=== PATIENT | male | born 1960 | race Caucasian/White ===

== ENCOUNTER → 2017-04-07 | Outpatient (CLI) | payer BC ==
[2016-11-20 14:38] VITALS: BP 122/80
[~2017-04-07] MED LIST: NS 100 ML IV 100 ML IV ONE
[2017-04-07 09:09] LABS: CREATININE 1.16 mg/dL (0.70-1.30)
--- NOTE | 2017-04-07 11:12 | CT ---
HISTORY: Left lower quadrant pain. History of diverticulosis. Study: CT abdomen and pelvis with contrast Comparison: CT abdomen/pelvis dated November 17, 2016. Technique: Multiple axial images of the abdomen and pelvis were obtained from the lung bases to the pubic symph ysis after/ without/ both prior to and after the administration of IV contrast. Dose reduction tech niques including Automated Exposure Control (AEC) and adjustment of mA and kV were utilized. Findings: The visualized portions of the lung bases are unremarkable. The gallbladder is surgically absent. Di ffuse fatty infiltration of the liver. 4 mm right inferior renal pole nonobstructing nephrolith appe ars unchanged. The spleen, pancreas, left kidney, and adrenal glands are unremarkable in their CT ap pearance. Extensive diverticulosis of the large bowel with focal bowel wall thickening and associate d mesenteric stranding within the left lower quadrant. No obvious free air to suggest perforation or focal fluid collection to suggest abscess formation. Remaining large and small bowel appear normal. The appendix is normal. No pathologic lymphadenopathy or free fluid is seen. Dense calcifications w ithin the prostate that is otherwise unremarkable. The urinary bladder is grossly unremarkable. The osseous structures appear normal for age. IMPRESSION: 1. Left lower quadrant diverticulitis without free air to suggest perforation or focal fluid collec tion to suggest abscess formation. No obvious neoplasm. However, recommend direct visualization afte r patient has recovered from current episode. 2. Other chronic findings as above. Reported By:
== END | disposition home or self-care (01) | DRG 392 ==
LOC: RAD 08:39
PROVIDERS: ATTEND Internal Medicine
DX: R10.32 Left lower quadrant pain (principal); Z87.19 Personal history of other diseases of the digestive system; K57.92 Diverticulitis of intestine, part unspecified, without perforation or abscess without bleeding
CPT/HCPCS: 36415; 74177; 82565; 84520; A4222

== ENCOUNTER 2018-06-23 14:34 | Inpatient (IN) ==
[2018-06-23] MEDS ORDERED: NS 500 ML IV 500 ML IV ONE (15:58)
[2018-06-23] MEDS ORDERED: MOTRIN TAB 800 MG PO PRN (15:58)
[2018-06-23] MEDS ORDERED: ZOFRAN INJ 4 MG VIAL IVP PRN (15:58)
[2018-06-23] MEDS: NS 1000 ML 1,000 ML IV SCH (16:17)
[2018-06-23 16:44] LABS: BASOPHILS # (AUTO) 0.2 X10^3/uL (0.0-0.1); BASOPHILS % (AUTO) 0.8 % (0.2-1.0); EOSINOPHILS % (AUTO) 0.1 % (0.9-2.9); HEMATOCRIT 44.9 % (42.0-54.0); HEMOGLOBIN 15.8 g/dL (13.5-18.0); LYMPHOCYTES # (AUTO) 1.2 X10^3/uL (1.3-2.9); LYMPHOCYTES % (AUTO) 5.5 % (21.0-51.0); MEAN CORPUSCULAR HEMOGLOBIN 30.1 pg (27.0-34.0); MEAN CORPUSCULAR HGB CONC 35.2 g/dL (33.0-35.0); MEAN CORPUSCULAR VOLUME 85.4 fL (80.0-100.0); MEAN PLATELET VOLUME 8.3 fL (7.4-11.0); MONOCYTES # (AUTO) 1.4 x10^3/uL (0.3-0.8); MONOCYTES % (AUTO) 6.2 % (0.0-13.0); NEUTROPHILS # (AUTO) 19.2 x10^3/uL (2.2-4.8); NEUTROPHILS % (AUTO) 87.4 % (42.0-75.0); PLATELET COUNT 233 X10^3/uL (150.0-450.0); RED BLOOD COUNT 5.26 X10^6/uL (4.7-6.0)
[2018-06-23] MEDS: ROCEPHIN VIAL 1 GRAM 1 G in NS 100 ML IV + SPIKE MINIBAG* 100 ML IV SCH (16:45)
[2018-06-23 17:04] LABS: ALANINE AMINOTRANSFERASE 71 Units/L (12-78); ALBUMIN 4.1 g/dL (3.4-5.0); ALKALINE PHOSPHATASE 66 Units/L (46-116); ASPARTATE AMINO TRANSFERASE 35 Units/L (15-37); BLOOD UREA NITROGEN 9 mg/dL (7-18); CALCIUM 9.1 mg/dL (8.5-10.1); CARBON DIOXIDE 23.8 mmol/L (21-32); CHLORIDE 100 mmol/L (98-107); COR NA(FOR HYPERGLY) 137 mmol/L (136-145); CREATININE 1.04 mg/dL (0.70-1.30); SODIUM 136 mmol/L (136-145); TOTAL PROTEIN 7.9 g/dL (6.4-8.2); eGFR NON BLACK RACES > 60 (>60)
[2018-06-23 17:08] LABS: BILIRUBIN,URINE NEGATIVE (NEGATIVE); BLOOD/HEMOGLOBIN,URINE 1+ (NEGATIVE); GLUCOSE, URINE NEGATIVE (NEGATIVE); KETONES,URINE NEGATIVE (NEGATIVE); LEUKOCYTE ESTERASE ,URINE 2+ (NEGATIVE); NITRITES,URINE NEGATIVE (NEGATIVE); PROTEIN,URINE NEGATIVE (NEGATIVE); UROBILINOGEN,URINE NORMAL (NORMAL)
[2018-06-23 17:11] LABS: BAND NEUTROPHILS % 16 % (0-10); PLATELET MORPHOLOGY COMMENT NORMAL (NORMAL)
[2018-06-23 17:52] LABS: APPEARANCE,URINE CLEAR (CLEAR); BACTERIA,URINE TRACE /HPF (NEGATIVE); COLOR,URINE YELLOW (YELLOW); SQUAMOUS EPITHELIAL CELL,UR RARE /HPF (NEGATIVE)
[2018-06-23 18:11] VITALS: BMI 32.3
[2018-06-23] MEDS: TYLENOL 500 MG TAB EXTRA STRENGTH PO PRN (20:41)
[2018-06-24] MEDS: NS 1000 ML 1,000 ML IV SCH ×2 (05:14→19:10)
[2018-06-24 05:35] LABS: BASOPHILS # (AUTO) 0.1 X10^3/uL (0.0-0.1); BASOPHILS % (AUTO) 0.3 % (0.2-1.0); EOSINOPHILS % (AUTO) 0.1 % (0.9-2.9); HEMATOCRIT 42.6 % (42.0-54.0); HEMOGLOBIN 15.2 g/dL (13.5-18.0); LYMPHOCYTES # (AUTO) 1.4 X10^3/uL (1.3-2.9); LYMPHOCYTES % (AUTO) 4.2 % (21.0-51.0); MEAN CORPUSCULAR HEMOGLOBIN 30.4 pg (27.0-34.0); MEAN CORPUSCULAR HGB CONC 35.7 g/dL (33.0-35.0); MEAN CORPUSCULAR VOLUME 85.3 fL (80.0-100.0); MEAN PLATELET VOLUME 8.6 fL (7.4-11.0); MONOCYTES # (AUTO) 2.7 x10^3/uL (0.3-0.8); MONOCYTES % (AUTO) 8.1 % (0.0-13.0); NEUTROPHILS # (AUTO) 28.9 x10^3/uL (2.2-4.8); NEUTROPHILS % (AUTO) 87.3 % (42.0-75.0); PLATELET COUNT 218 X10^3/uL (150.0-450.0); RED BLOOD COUNT 4.99 X10^6/uL (4.7-6.0); RED CELL DISTRIBUTION WIDTH 13.8 % (11.6-16.5)
[2018-06-24 05:44] LABS: ALANINE AMINOTRANSFERASE 55 Units/L (12-78); ALBUMIN 3.6 g/dL (3.4-5.0); ALKALINE PHOSPHATASE 67 Units/L (46-116); ASPARTATE AMINO TRANSFERASE 24 Units/L (15-37); BLOOD UREA NITROGEN 9 mg/dL (7-18); CALCIUM 8.8 mg/dL (8.5-10.1); CARBON DIOXIDE 22.8 mmol/L (21-32); CHLORIDE 100 mmol/L (98-107); COR NA(FOR HYPERGLY) 137 mmol/L (136-145); CREATININE 1.09 mg/dL (0.70-1.30); SODIUM 136 mmol/L (136-145); TOTAL PROTEIN 7.1 g/dL (6.4-8.2); eGFR NON BLACK RACES > 60 (>60)
[2018-06-24 05:50] LABS: WHITE BLOOD COUNT 33.1 X10^3/uL (3.6-10.0)
[2018-06-24] MEDS: ROCEPHIN VIAL 1 GRAM 1 G in NS 100 ML IV + SPIKE MINIBAG* 100 ML IV SCH (08:17)
[2018-06-24] MEDS: TYLENOL 500 MG TAB EXTRA STRENGTH PO PRN ×2 (08:17→20:38)
[2018-06-24] MEDS: FORTAZ or TAZICEF VIAL INJ 1 G in NS 100 ML IV + SPIKE MINIBAG* 100 ML IV SCH ×3 (10:37→22:00)
[2018-06-24] MEDS: LEVAQUIN PREMIX IV 750 MG 750 MG/150 ML BAG IV SCH (10:37)
[2018-06-24] MEDS ORDERED: NS 100 ML IV 100 ML IV ONE (11:16)
[2018-06-24] MEDS: ASPIRIN 81 MG CHEWTAB PO SCH (11:46)
[2018-06-24] MEDS: ZyrTEC TAB 10 MG PO SCH (11:46)
[2018-06-24] MEDS: FLOMAX PO SCH (11:46)
[2018-06-24] MEDS: PEPCID TAB 20 MG PO SCH ×2 (11:46→20:38)
[2018-06-24] MEDS: TAB-A-VITE PO SCH ×2 (11:46→20:39)
--- NOTE | 2018-06-24 14:58 | CT ---
HISTORY: 3+ hematuria for 2 weeks[place] [id number]. Study: CT abdomen and pelvis with IV and oral contrast Comparison: 04/07/2017. Technique: Multiple axial images of the abdomen and pelvis were obtained from the lung bases to the pubic symphy sis during the administration of IV contrast. Oral contrast agents were also given. Coronal and sagi ttal images are reviewed. Dose reduction techniques utilized automatic exposure control. Findings: The visualized portions of the lung bases are unremarkable. The liver again displays evidence of diff use fatty change. The spleen, pancreas and adrenal glands are unremarkable in their CT appearance. T he gallbladder is surgically absent. There is a nonobstructing 5 mm stone present within the lower po le of the right kidney. Small sub cm simple cortical cysts are present involving both kidneys. No kyle id mass or hydronephrosis is seen. There is no significant perinephric fluid or stranding. The left r enal vein courses ventral to the abdominal aorta.. No significant mesenteric lymphadenopathy or stra nding can be observed. No free fluid or free air is seen within the abdomen. No bowel wall thickeni ng or bowel dilatation is present. Appendix is normal. Moderate but uncomplicated appearing left colo n diverticulosis extends from the distal transverse colon to the sigmoid area. No evidence of diverti culitis, abscess or fluid is seen.. The urinary bladder is grossly unremarkable. The bony structures are grossly intact. IMPRESSION: 5 mm nonobstructing stone in the lower pole of the right kidney. Small sub cm simple cortical cysts a re present involving both kidneys. No solid mass or hydronephrosis is seen. Fatty liver. Surgically absent gallbladder. Uncomplicated appearing left colon diverticulosis. Reported By:
--- NOTE | 2018-06-24 15:45 | DR.UPDATE ---
H&P Update History and Physical Update: WAS SEEN IN THE OFFICE TODAY. A H&P WAS COMPLETED PRIOR TO ADMISSION. PATIENT HAS BEEN SEEN AND EXAMINED WITH NO CHANGES NOTED TO H&P. Changes noted: NO Yes with the following:
--- NOTE | 2018-06-24 16:18 | PCM.PROG ---
Progress Note - Progress Note for Day of Date of Exam: 06/24/18 - Subjective Subjective: WAS ADMITTED YESTERDAY FOR PYELONEPHRITIS, FEVER, CHILLS, AND A SYNCOPAL EPISODE. TODAY, HE IS ALERT AND ORIENTED, LYING IN BED ON MORNING ROUNDS. HE CONTINUES WITH COMPLAINTS OF RLQ AND LLQ ABDOMINAL PAIN WELL PAIN TO THE LOWER BACK. HE REPORTS BLOOD IN HIS URINE. ON EXAMINATION , HE IS SLIGHTLY TACHYCARDIC WITH HR NOTED TO BE 110-120 BPM. BILATERAL LUNGS ARE NOTED WITH DIMINISHED LUNG SOUNDS THROUGHOUT. ABDOMEN IS ROUND, SOFT, AND NOTED WITH MODERATE TENDERNESS TO THE LOWER QUADRANTS. NORMAL BOWEL SOUNDS ARE NOTED IN ALL QUADRANTS. HIS VITALS THIS MORNING ARE 99.1-114-20-97%-101/58. LABS WERE OBTAINED THIS MORNING. ABNORMAL LAB VALUES INCLUDE THE FOLLOWING: WBC INCREASED FROM 22.0 TO 33.1, GLUCOSE 156, TOTAL BILI 1.90. URINALYSIS ON ADMISSION REVEALED WBC 10-20, RBC 3-5, LEUKOCYTES 2+, BACTERIA TRACE, OCCULT BLOOD 1+. HE HAS BEEN UNDER THE CARE OF FOR MULTIPLE KIDNEY STONES. LITHOTRIPSY IS PLANNED FOR SOMETIME IN THE NEXT FEW WEEKS. TODAY, WE WILL OBTAIN AN ABDOMEN/PELVIS CT WITH CONTRAST, OBTAIN BLOOD CULTURES, AND A URINE CULTURE. WE WILL DISCONTINUE THE ROCEPHIN THAT HE IS CURRENTLY ON AND START FORTAZ AND LEVAQUIN. OTHERWISE, WE WILL FOLLOW UP WITH AM LABS AND CONTINUE TO MONITOR PATIENT. - Past Medical Family Social History Past Med/Fam/Surg Hx: No changes since H&P Allergies: Allergies No Known Drug Allergies Allergy (Verified 06/23/18 15:58) - Review of Systems ROS: No change since H&P - Vital Signs and I&O's Vital Signs: Temperature 99 F Pulse Rate [Right Brachial] 114 Respiratory Rate 20 Blood Pressure [Left Arm] 125/59 Blood Pressure [Right Arm] 127/72 Blood Pressure 122/80 O2 Sat by Pulse Oximetry 97 Intake and Output: Intake & Output 06/22/18 06/23/18 06/24/18 06/25/18 11:59 11:59 11:59 11:59 Intake Total 1725 / 1725 200 / 200 Output Total 300 / 300 Balance 1425 / 1425 200 / 200 - Physical Exam Oriented: Normal Eyes: Normal Ear: Normal Nose: Normal Throat: Normal Respiratory: Diminished Cardiovascular: Tachycardia. negative: S3, S4, Murmur : Normal Auscultation: Bowel Sounds: Normal Palpation: Normal Tenderness: RLQ, LLQ, Moderate. negative: Rebound, Guarding, Rigidity Skin: Normal Musculoskeletal: Back:Lumbar, Tender Psychiatric: Normal Mood Description: Calm Affect: Normal Speech Pattern: Clear, Appropriate - Laboratory and Diagnostics Result Diagrams: 06/24/18 04:15 06/24/18 04:15 Labs: Laboratory WBC 33.1 X10^3/uL (3.6-10.0) H* D 06/24/18 04:15 RBC 4.99 X10^6/uL (4.7-6.0) 06/24/18 04:15 Hgb 15.2 g/dL (13.5-18.0) 06/24/18 04:15 Hct 42.6 % (42.0-54.0) 06/24/18 04:15 MCV 85.3 fL (80.0-100.0) 06/24/18 04:15 MCH 30.4 pg (27.0-34.0) 06/24/18 04:15 MCHC 35.7 g/dL (33.0-35.0) H 06/24/18 04:15 RDW 13.8 % (11.6-16.5) 06/24/18 04:15 Plt Count 218 X10^3/uL (150.0-450.0) 06/24/18 04:15 Plt Count Comment Adequate (ADEQUATE) 06/23/18 16:11 MPV 8.6 fL (7.4-11.0) 06/24/18 04:15 Neut % (Auto) 87.3 % (42.0-75.0) H 06/24/18 04:15 Lymph % (Auto) 4.2 % (21.0-51.0) L 06/24/18 04:15 [place] % (Auto) 8.1 % (0.0-13.0) 06/24/18 04:15 Eos % (Auto) 0.1 % (0.9-2.9) L 06/24/18 04:15 Baso % (Auto) 0.3 % (0.2-1.0) 06/24/18 04:15 Neut # (Auto) 28.9 x10^3/uL (2.2-4.8) H 06/24/18 04:15 Lymph # (Auto) 1.4 X10^3/uL (1.3-2.9) 06/24/18 04:15 [place] # (Auto) 2.7 x10^3/uL (0.3-0.8) H 06/24/18 04:15 Eos # (Auto) 0.0 x10^3/uL (0.0-0.2) 06/24/18 04:15 Baso # (Auto) 0.1 X10^3/uL (0.0-0.1) 06/24/18 04:15 Absolute Nucleated RBC 0.0 /100WBC 06/24/18 04:15 Total Counted 100 06/23/18 16:11 Neutrophils % (Manual) 68 % (39-76) 06/23/18 16:11 Band Neutrophils % 16 % (0-10) H 06/23/18 16:11 Lymphocytes % (Manual) 10 % (13-43) L 06/23/18 16:11 Monocytes % (Manual) 6 % (4-9) 06/23/18 16:11 Plt Morphology Comment Normal (NORMAL) 06/23/18 16:11 RBC Morphology Normal (NORMAL) 06/23/18 16:11 INR Target Range - 06/24/18 04:15 INR 1.08 (0.8-1.3) 06/24/18 04:15 APTT 30.9 SECONDS (22.9-36.5) 06/23/18 16:11 PTT Comment - 06/23/18 16:11 Sodium 136 mmol/L (136-145) 06/24/18 04:15 Corrected Sodium 137 mmol/L (136-145) 06/24/18 04:15 Potassium 3.8 mmol/L (3.5-5.1) 06/24/18 04:15 Chloride 100 mmol/L (98-107) 06/24/18 04:15 Carbon Dioxide 22.8 mmol/L (21-32) 06/24/18 04:15 BUN 9 mg/dL (7-18) 06/24/18 04:15 Creatinine 1.09 mg/dL (0.70-1.30) 06/24/18 04:15 Est GFR (MDRD) Af Amer > 60 (>60) 06/24/18 04:15 Est GFR (MDRD) Non-Af > 60 (>60) 06/24/18 04:15 Glucose 156 mg/dL (65-99) H 06/24/18 04:15 Calcium 8.8 mg/dL (8.5-10.1) 06/24/18 04:15 Corrected Calcium TNP 06/24/18 04:15 Total Bilirubin 1.90 mg/dL (0.2-1.0) H 06/24/18 04:15 AST 24 Units/L (15-37) 06/24/18 04:15 ALT 55 Units/L (12-78) 06/24/18 04:15 Alkaline Phosphatase 67 Units/L (46-116) 06/24/18 04:15 Total Protein 7.1 g/dL (6.4-8.2) 06/24/18 04:15 Albumin 3.6 g/dL (3.4-5.0) 06/24/18 04:15 Globulin 3.5 g/dL (2.5-4.5) 06/24/18 04:15 Albumin/Globulin Ratio 1.0 Ratio (1.1-2.1) L 06/24/18 04:15 Specimen Type Random urine 06/23/18 16:37 Urine Color Yellow (YELLOW) 06/23/18 16:37 Urine Appearance Clear (CLEAR) 06/23/18 16:37 Urine pH 7.0 (5.0 - 8.0) 06/23/18 16:37 Ur Specific [place] 1.010 (1.000-1.030) 06/23/18 16:37 Urine Protein Negative (NEGATIVE) 06/23/18 16:37 Urine Glucose (UA) Negative (NEGATIVE) 06/23/18 16:37 Urine Ketones Negative (NEGATIVE) 06/23/18 16:37 Urine Occult Blood 1+ (NEGATIVE) 06/23/18 16:37 Urine Nitrite Negative (NEGATIVE) 06/23/18 16:37 Urine Bilirubin Negative (NEGATIVE) 06/23/18 16:37 Urine Urobilinogen Normal (NORMAL) 06/23/18 16:37 Ur Leukocyte Esterase 2+ (NEGATIVE) 06/23/18 16:37 Urine RBC 3-5 /HPF (NONE SEEN) 06/23/18 16:37 Urine WBC 10-20 /HPF (NONE SEEN) 06/23/18 16:37 Ur Squamous Epith Cells Rare /HPF (NEGATIVE) 06/23/18 16:37 Urine Bacteria Trace /HPF (NEGATIVE) 06/23/18 16:37 Ur Culture Indicated? No/not indicated 06/23/18 16:37 - Plan (1) Pyelonephritis Status: Acute Plan: OBTAIN ABDOMEN/PELVIS CT, URINE CULTURE, FORTAZ IV, LEVAQUIN IV, CONTINUE TO MONITOR
[2018-06-24] MEDS: LIPITOR TAB 40 MG PO SCH (20:38)
[2018-06-25] MEDS: FORTAZ or TAZICEF VIAL INJ 1 G in NS 100 ML IV + SPIKE MINIBAG* 100 ML IV SCH ×3 (05:06→21:56)
[2018-06-25 05:20] LABS: BASOPHILS # (AUTO) 0.1 X10^3/uL (0.0-0.1); BASOPHILS % (AUTO) 0.2 % (0.2-1.0); EOSINOPHILS # (AUTO) 0.1 x10^3/uL (0.0-0.2); EOSINOPHILS % (AUTO) 0.3 % (0.9-2.9); HEMATOCRIT 39.6 % (42.0-54.0); HEMOGLOBIN 13.9 g/dL (13.5-18.0); LYMPHOCYTES # (AUTO) 1.8 X10^3/uL (1.3-2.9); LYMPHOCYTES % (AUTO) 7.3 % (21.0-51.0); MEAN CORPUSCULAR VOLUME 85.6 fL (80.0-100.0); MEAN PLATELET VOLUME 8.3 fL (7.4-11.0); MONOCYTES # (AUTO) 1.5 x10^3/uL (0.3-0.8); MONOCYTES % (AUTO) 6.2 % (0.0-13.0); PLATELET COUNT 198 X10^3/uL (150.0-450.0); RED BLOOD COUNT 4.63 X10^6/uL (4.7-6.0); RED CELL DISTRIBUTION WIDTH 13.8 % (11.6-16.5); WHITE BLOOD COUNT 24.4 X10^3/uL (3.6-10.0)
[2018-06-25 05:43] LABS: ALANINE AMINOTRANSFERASE 40 Units/L (12-78); ALBUMIN 2.9 g/dL (3.4-5.0); ALKALINE PHOSPHATASE 73 Units/L (46-116); ASPARTATE AMINO TRANSFERASE 20 Units/L (15-37); BLOOD UREA NITROGEN 8 mg/dL (7-18); CALCIUM 8.7 mg/dL (8.5-10.1); CARBON DIOXIDE 25.4 mmol/L (21-32); CHLORIDE 104 mmol/L (98-107); COR CA(FOR HYPOALB) 9.6 mg/dL (8.5-10.1); COR NA(FOR HYPERGLY) 139 mmol/L (136-145); CREATININE 0.97 mg/dL (0.70-1.30); SODIUM 138 mmol/L (136-145); TOTAL PROTEIN 6.7 g/dL (6.4-8.2); eGFR NON BLACK RACES > 60 (>60)
[2018-06-25 06:04] LABS: BAND NEUTROPHILS % 4 % (0-10)
[2018-06-25 06:05] LABS: PLATELET MORPHOLOGY COMMENT NORMAL (NORMAL)
[2018-06-25] MEDS: FLOMAX PO SCH (08:46)
[2018-06-25] MEDS: LEVAQUIN PREMIX IV 750 MG 750 MG/150 ML BAG IV SCH (08:46)
[2018-06-25] MEDS: PLAVIX PO SCH (08:46)
[2018-06-25] MEDS: NS 1000 ML 1,000 ML IV SCH ×2 (08:46→21:56)
[2018-06-25] MEDS: ASPIRIN 81 MG CHEWTAB PO SCH (08:46)
[2018-06-25] MEDS: PEPCID TAB 20 MG PO SCH ×2 (08:46→21:55)
[2018-06-25] MEDS: ZyrTEC TAB 10 MG PO SCH (08:47)
[2018-06-25] MEDS: TAB-A-VITE PO SCH ×2 (08:47→21:54)
--- NOTE | 2018-06-25 10:09 | CT ---
HISTORY: Severe headache, shooting/stabbing pain to both sides Study: CT brain without contrast Comparison: None Technique: Multiple axial images of the brain were obtained without administration of IV contrast. Dose reducti on techniques including Automated Exposure Control (AEC) and adjustment of mA and kV were utilized. Findings: The brain parenchyma is within normal limits for patient's age. No evidence of acute hemorrhage, mid line shift, mass effect or abnormal extra-axial fluid collection. The ventricular system is symmetri c and nondilated. The soft tissues and osseous structures are unremarkable. The visualized paranasal sinuses are clear. IMPRESSION: 1.No acute intracranial abnormality. Reported By:
[2018-06-25] MEDS: TORADOL 15 MG VIAL IVP SCH ×2 (13:56→21:53)
[2018-06-25] MEDS: LIPITOR TAB 40 MG PO SCH (21:54)
[2018-06-26] MEDS: TORADOL 15 MG VIAL IVP SCH (01:45)
[2018-06-26] MEDS: FORTAZ or TAZICEF VIAL INJ 1 G in NS 100 ML IV + SPIKE MINIBAG* 100 ML IV SCH ×3 (05:23→21:03)
[2018-06-26 06:15] LABS: BASOPHILS % (AUTO) 0.3 % (0.2-1.0); EOSINOPHILS # (AUTO) 0.1 x10^3/uL (0.0-0.2); EOSINOPHILS % (AUTO) 0.9 % (0.9-2.9); HEMATOCRIT 37.5 % (42.0-54.0); HEMOGLOBIN 13.2 g/dL (13.5-18.0); LYMPHOCYTES # (AUTO) 1.9 X10^3/uL (1.3-2.9); MEAN CORPUSCULAR HEMOGLOBIN 30.1 pg (27.0-34.0); MEAN CORPUSCULAR HGB CONC 35.2 g/dL (33.0-35.0); MEAN CORPUSCULAR VOLUME 85.5 fL (80.0-100.0); MEAN PLATELET VOLUME 8.3 fL (7.4-11.0); MONOCYTES # (AUTO) 0.9 x10^3/uL (0.3-0.8); MONOCYTES % (AUTO) 5.8 % (0.0-13.0); NEUTROPHILS # (AUTO) 12.7 x10^3/uL (2.2-4.8); PLATELET COUNT 201 X10^3/uL (150.0-450.0); RED BLOOD COUNT 4.38 X10^6/uL (4.7-6.0); RED CELL DISTRIBUTION WIDTH 13.6 % (11.6-16.5); WHITE BLOOD COUNT 15.7 X10^3/uL (3.6-10.0)
[2018-06-26 06:33] LABS: ALANINE AMINOTRANSFERASE 37 Units/L (12-78); ALBUMIN 2.7 g/dL (3.4-5.0); ALKALINE PHOSPHATASE 67 Units/L (46-116); ASPARTATE AMINO TRANSFERASE 17 Units/L (15-37); BLOOD UREA NITROGEN 8 mg/dL (7-18); CALCIUM 8.3 mg/dL (8.5-10.1); CARBON DIOXIDE 26.3 mmol/L (21-32); CHLORIDE 107 mmol/L (98-107); COR CA(FOR HYPOALB) 9.3 mg/dL (8.5-10.1); COR NA(FOR HYPERGLY) 143 mmol/L (136-145); CREATININE 0.96 mg/dL (0.70-1.30); SODIUM 141 mmol/L (136-145); TOTAL PROTEIN 6.7 g/dL (6.4-8.2); eGFR NON BLACK RACES > 60 (>60)
[2018-06-26] MEDS: LEVAQUIN PREMIX IV 750 MG 750 MG/150 ML BAG IV SCH (09:32)
[2018-06-26] MEDS: ZyrTEC TAB 10 MG PO SCH (09:33)
[2018-06-26] MEDS: ASPIRIN 81 MG CHEWTAB PO SCH (09:33)
[2018-06-26] MEDS: PLAVIX PO SCH (09:33)
[2018-06-26] MEDS: FLOMAX PO SCH (09:33)
[2018-06-26] MEDS: PEPCID TAB 20 MG PO SCH ×2 (09:33→20:43)
[2018-06-26] MEDS: TAB-A-VITE PO SCH ×2 (09:33→20:43)
[2018-06-26] MEDS: LIPITOR TAB 40 MG PO SCH (20:43)
[2018-06-26] MEDS: NS 1000 ML 1,000 ML IV SCH (20:44)
[2018-06-27] MEDS ORDERED: MAGNESIUM SULFATE 1 GRAM/100 mL PREMIX 0 G/0 ML BAG IV ONE (04:49)
[2018-06-27] MEDS: FORTAZ or TAZICEF VIAL INJ 1 G in NS 100 ML IV + SPIKE MINIBAG* 100 ML IV SCH (05:33)
[2018-06-27 06:14] LABS: BASOPHILS # (AUTO) 0.1 X10^3/uL (0.0-0.1); BASOPHILS % (AUTO) 0.5 % (0.2-1.0); EOSINOPHILS # (AUTO) 0.2 x10^3/uL (0.0-0.2); EOSINOPHILS % (AUTO) 2.1 % (0.9-2.9); HEMATOCRIT 38.4 % (42.0-54.0); HEMOGLOBIN 13.8 g/dL (13.5-18.0); LYMPHOCYTES # (AUTO) 1.8 X10^3/uL (1.3-2.9); LYMPHOCYTES % (AUTO) 15.8 % (21.0-51.0); MEAN CORPUSCULAR HEMOGLOBIN 30.3 pg (27.0-34.0); MEAN CORPUSCULAR HGB CONC 35.9 g/dL (33.0-35.0); MEAN CORPUSCULAR VOLUME 84.4 fL (80.0-100.0); MEAN PLATELET VOLUME 8.3 fL (7.4-11.0); MONOCYTES # (AUTO) 0.9 x10^3/uL (0.3-0.8); MONOCYTES % (AUTO) 7.6 % (0.0-13.0); NEUTROPHILS # (AUTO) 8.3 x10^3/uL (2.2-4.8); PLATELET COUNT 254 X10^3/uL (150.0-450.0); RED BLOOD COUNT 4.55 X10^6/uL (4.7-6.0); RED CELL DISTRIBUTION WIDTH 13.8 % (11.6-16.5); WHITE BLOOD COUNT 11.2 X10^3/uL (3.6-10.0)
[2018-06-27 06:22] LABS: ALANINE AMINOTRANSFERASE 46 Units/L (12-78); ALBUMIN 2.8 g/dL (3.4-5.0); ALKALINE PHOSPHATASE 66 Units/L (46-116); ASPARTATE AMINO TRANSFERASE 24 Units/L (15-37); BLOOD UREA NITROGEN 6 mg/dL (7-18); CALCIUM 8.6 mg/dL (8.5-10.1); CARBON DIOXIDE 26.8 mmol/L (21-32); CHLORIDE 107 mmol/L (98-107); COR CA(FOR HYPOALB) 9.6 mg/dL (8.5-10.1); COR NA(FOR HYPERGLY) 142 mmol/L (136-145); CREATININE 0.85 mg/dL (0.70-1.30); SODIUM 141 mmol/L (136-145); TOTAL PROTEIN 6.7 g/dL (6.4-8.2); eGFR NON BLACK RACES > 60 (>60)
[2018-06-27] MEDS: LEVAQUIN PREMIX IV 750 MG 750 MG/150 ML BAG IV SCH (08:19)
[2018-06-27] MEDS: PEPCID TAB 20 MG PO SCH (08:21)
[2018-06-27] MEDS: FLOMAX PO SCH (08:21)
[2018-06-27] MEDS: PLAVIX PO SCH (08:22)
[2018-06-27] MEDS: ZyrTEC TAB 10 MG PO SCH (08:22)
[2018-06-27] MEDS: ASPIRIN 81 MG CHEWTAB PO SCH (08:22)
[2018-06-27] MEDS: TAB-A-VITE PO SCH (08:22)
[2018-06-27 13:00] VITALS: BP 149/83
--- NOTE | 2018-06-28 20:57 | PCM.PROG ---
Progress Note - Progress Note for Day of Date of Exam: 06/25/18 - Subjective Subjective: WAS ADMITTED YESTERDAY FOR PYELONEPHRITIS, FEVER, CHILLS, AND A SYNCOPAL EPISODE. TODAY, HE IS ALERT AND ORIENTED, LYING IN BED ON MORNING ROUNDS. HE CONTINUES WITH COMPLAINTS OF RLQ AND LLQ ABDOMINAL PAIN WELL PAIN TO THE LOWER BACK. HE ALSO REPORTS A SEVERE HEADACHE ON EXAMINATION, HE IS SLIGHTLY TACHYCARDIC WITH HR NOTED TO BE 110-120 BPM. BILATERAL LUNGS ARE NOTED WITH DIMINISHED LUNG SOUNDS THROUGHOUT. ABDOMEN IS ROUND, SOFT, AND NOTED WITH MODERATE TENDERNESS TO THE LOWER QUADRANTS. NORMAL BOWEL SOUNDS ARE NOTED IN ALL QUADRANTS. HIS VITALS THIS MORNING ARE 98.7-100-18 -94%-112/72. LABS WERE OBTAINED THIS MORNING. ABNORMAL LAB VALUES INCLUDE THE FOLLOWING: WBC DECREASED TO 24.4, RBC 4.63, HCT 39.6, GLUCOSE 121, TOTAL PROTEIN 1.20, ALBUMIN 2.9. BLOOD AND URINE CULTURES ARE PENDING. AN ABDOMEN/ PELVIS CT WITH CONTRAST WAS OBTAINED YESTERDAY AND REVEALED: 5 mm non- obstructing stone in the lower pole of the right kidney. Small sub cm simple cortical cysts are present involving both kidneys. No solid mass or hydronephrosis is seen. Fatty liver. Surgically absent gallbladder. Uncomplicated appearing left colon diverticulosis. TODAY, WE WILL OBTAIN A BRAIN CT WITHOUT CONTRAST. OTHERWISE, WE WILL CONTINUE WITH IV FLUIDS, IV ANTIBIOTICS, AND CURRENT PLAN OF CARE. WE WILL FOLLOW UP WITH AM LABS AND CONTINUE TO MONITOR PATIENT. - Past Medical Family Social History Past Med/Fam/Surg Hx: No changes since H&P Allergies: Allergies No Known Drug Allergies Allergy (Verified 06/23/18 15:58) - Review of Systems ROS: No change since H&P - Vital Signs and I&O's Vital Signs: Temperature 97.7 F Pulse Rate [Right Brachial] 102 Respiratory Rate 20 Blood Pressure [Left Arm] 157/74 Blood Pressure [Right Arm] 149/83 Blood Pressure 122/80 O2 Sat by Pulse Oximetry 98 Intake and Output: Intake & Output 06/26/18 06/27/18 06/28/18 06/29/18 11:59 11:59 11:59 11:59 Intake Total 7305 / 3765 2624 / 2624 Balance 3765 / 3765 2624 / 2624 - Physical Exam Oriented: Normal Eyes: Normal Ear: Normal Nose: Normal Throat: Normal Respiratory: Diminished Cardiovascular: Tachycardia. negative: S3, S4, Murmur : Normal Auscultation: Bowel Sounds: Normal Tenderness: RLQ, LLQ, Moderate. negative: Rebound, Guarding, Rigidity Skin: Normal Musculoskeletal: Back:Lumbar, Tender Psychiatric: Normal Mood Description: Calm Affect: Normal Speech Pattern: Clear, Appropriate - Laboratory and Diagnostics Result Diagrams: 06/27/18 04:08 06/27/18 04:08 Labs: 06/24/18 09:19 Urine,Clean Catch Urine Culture - Final 06/24/18 10:01 Blood Blood Culture - Preliminary 06/24/18 09:45 Blood Blood Culture - Preliminary Laboratory WBC 11.2 X10^3/uL (3.6-10.0) H 06/27/18 04:08 RBC 4.55 X10^6/uL (4.7-6.0) L 06/27/18 04:08 Hgb 13.8 g/dL (13.5-18.0) 06/27/18 04:08 Hct 38.4 % (42.0-54.0) L 06/27/18 04:08 MCV 84.4 fL (80.0-100.0) 06/27/18 04:08 MCH 30.3 pg (27.0-34.0) 06/27/18 04:08 MCHC 35.9 g/dL (33.0-35.0) H 06/27/18 04:08 RDW 13.8 % (11.6-16.5) 06/27/18 04:08 Plt Count 254 X10^3/uL (150.0-450.0) 06/27/18 04:08 Plt Count Comment Adequate (ADEQUATE) 06/25/18 04:10 MPV 8.3 fL (7.4-11.0) 06/27/18 04:08 Neut % (Auto) 74.0 % (42.0-75.0) 06/27/18 04:08 Lymph % (Auto) 15.8 % (21.0-51.0) L 06/27/18 04:08 [place] % (Auto) 7.6 % (0.0-13.0) 06/27/18 04:08 Eos % (Auto) 2.1 % (0.9-2.9) 06/27/18 04:08 Baso % (Auto) 0.5 % (0.2-1.0) 06/27/18 04:08 Neut # (Auto) 8.3 x10^3/uL (2.2-4.8) H 06/27/18 04:08 Lymph # (Auto) 1.8 X10^3/uL (1.3-2.9) 06/27/18 04:08 [place] # (Auto) 0.9 x10^3/uL (0.3-0.8) H 06/27/18 04:08 Eos # (Auto) 0.2 x10^3/uL (0.0-0.2) 06/27/18 04:08 Baso # (Auto) 0.1 X10^3/uL (0.0-0.1) 06/27/18 04:08 Absolute Nucleated RBC 0.0 /100WBC 06/27/18 04:08 Total Counted 100 06/25/18 04:10 Neutrophils % (Manual) 87 % (39-76) H 06/25/18 04:10 Band Neutrophils % 4 % (0-10) 06/25/18 04:10 Lymphocytes % (Manual) 4 % (13-43) L 06/25/18 04:10 Monocytes % (Manual) 5 % (4-9) 06/25/18 04:10 Plt Morphology Comment Normal (NORMAL) 06/25/18 04:10 RBC Morphology Normal (NORMAL) 06/25/18 04:10 INR Target Range - 06/24/18 04:15 INR 1.08 (0.8-1.3) 06/24/18 04:15 APTT 30.9 SECONDS (22.9-36.5) 06/23/18 16:11 PTT Comment - 06/23/18 16:11 Sodium 141 mmol/L (136-145) 06/27/18 04:08 Corrected Sodium 142 mmol/L (136-145) 06/27/18 04:08 Potassium 3.6 mmol/L (3.5-5.1) 06/27/18 04:08 Chloride 107 mmol/L (98-107) 06/27/18 04:08 Carbon Dioxide 26.8 mmol/L (21-32) 06/27/18 04:08 BUN 6 mg/dL (7-18) L 06/27/18 04:08 Creatinine 0.85 mg/dL (0.70-1.30) 06/27/18 04:08 Est GFR (MDRD) Af Amer > 60 (>60) 06/27/18 04:08 Est GFR (MDRD) Non-Af > 60 (>60) 06/27/18 04:08 Glucose 156 mg/dL (65-99) H 06/27/18 04:08 POC Glucose (mg/dL) 170 mg/dL (65-99) H 06/24/18 20:12 Calcium 8.6 mg/dL (8.5-10.1) 06/27/18 04:08 Corrected Calcium 9.6 mg/dL (8.5-10.1) 06/27/18 04:08 Total Bilirubin 0.40 mg/dL (0.2-1.0) 06/27/18 04:08 AST 24 Units/L (15-37) 06/27/18 04:08 ALT 46 Units/L (12-78) 06/27/18 04:08 Alkaline Phosphatase 66 Units/L (46-116) 06/27/18 04:08 Total Protein 6.7 g/dL (6.4-8.2) 06/27/18 04:08 Albumin 2.8 g/dL (3.4-5.0) L 06/27/18 04:08 Globulin 3.9 g/dL (2.5-4.5) 06/27/18 04:08 Albumin/Globulin Ratio 0.7 Ratio (1.1-2.1) L 06/27/18 04:08 Specimen Type Random urine 06/23/18 16:37 Urine Color Yellow (YELLOW) 06/23/18 16:37 Urine Appearance Clear (CLEAR) 06/23/18 16:37 Urine pH 7.0 (5.0 - 8.0) 06/23/18 16:37 Ur Specific [place] 1.010 (1.000-1.030) 06/23/18 16:37 Urine Protein Negative (NEGATIVE) 06/23/18 16:37 Urine Glucose (UA) Negative (NEGATIVE) 06/23/18 16:37 Urine Ketones Negative (NEGATIVE) 06/23/18 16:37 Urine Occult Blood 1+ (NEGATIVE) 06/23/18 16:37 Urine Nitrite Negative (NEGATIVE) 06/23/18 16:37 Urine Bilirubin Negative (NEGATIVE) 06/23/18 16:37 Urine Urobilinogen Normal (NORMAL) 06/23/18 16:37 Ur Leukocyte Esterase 2+ (NEGATIVE) 06/23/18 16:37 Urine RBC 3-5 /HPF (NONE SEEN) 06/23/18 16:37 Urine WBC 10-20 /HPF (NONE SEEN) 06/23/18 16:37 Ur Squamous Epith Cells Rare /HPF (NEGATIVE) 06/23/18 16:37 Urine Bacteria Trace /HPF (NEGATIVE) 06/23/18 16:37 Ur Culture Indicated? No/not indicated 06/23/18 16:37 - Plan (1) Pyelonephritis Status: Acute Plan: OBTAIN ABDOMEN/PELVIS CT, URINE CULTURE, FORTAZ IV, LEVAQUIN IV, CONTINUE TO MONITOR
--- NOTE | 2018-08-01 14:43 | DR.PROGNOT ---
Hospital Progress Notes - Progress Note for Day of: Progress Note Date: 06/26/18 - Chief Complaint Chief Complaint: FEVER, CHILLS, HEADACHE - History of Present Illness History of Present Illness: ADMITTED FOR PYELONEPHRITIS, FEVER, CHILLS, AND A SYNCOPAL EPISODE. TODAY HE IS ALERT AND ORIENTED. DOES STATE HEADACHE IS BETTER. FLANK PAIN IMPROVED. - Past Medical Family Social History Past Med/Fam/Surg Hx: No changes since H&P Allergies: Allergies No Known Drug Allergies Allergy (Verified 06/23/18 15:58) - Review Of Systems ROS: No change since H&P - Vital Signs Vital Signs: Temperature 97.7 F Pulse Rate [Right Brachial] 102 Respiratory Rate 20 Blood Pressure [Left Arm] 157/74 Blood Pressure [Right Arm] 149/83 Blood Pressure 122/80 O2 Sat by Pulse Oximetry 98 - Physical Exam Oriented: Normal Eyes: Normal Ear: Normal Nose: Normal Throat: Normal Respiratory: Diminished Cardiovascular: Tachycardia. negative: S3, S4, Murmur : Normal GI:Auscultation: Normal GI:Palpation: Normal GI: Tenderness: RLQ, LLQ, Moderate. negative: Rebound, Guarding, Rigidity Skin: Normal Musculoskeletal: Back:Lumbar, Tender Psychiatric: Normal Mood Description: Calm Affect: Normal Speech Pattern: Clear, Appropriate - Laboratory and Diagnostics Result Diagrams: 06/27/18 04:08 06/27/18 04:08 Labs: 06/24/18 10:01 Blood Blood Culture - Final 06/24/18 09:45 Blood Blood Culture - Final 06/24/18 09:19 Urine,Clean Catch Urine Culture - Final Laboratory WBC 11.2 X10^3/uL (3.6-10.0) H 06/27/18 04:08 RBC 4.55 X10^6/uL (4.7-6.0) L 06/27/18 04:08 Hgb 13.8 g/dL (13.5-18.0) 06/27/18 04:08 Hct 38.4 % (42.0-54.0) L 06/27/18 04:08 MCV 84.4 fL (80.0-100.0) 06/27/18 04:08 MCH 30.3 pg (27.0-34.0) 06/27/18 04:08 MCHC 35.9 g/dL (33.0-35.0) H 06/27/18 04:08 RDW 13.8 % (11.6-16.5) 06/27/18 04:08 Plt Count 254 X10^3/uL (150.0-450.0) 06/27/18 04:08 Plt Count Comment Adequate (ADEQUATE) 06/25/18 04:10 MPV 8.3 fL (7.4-11.0) 06/27/18 04:08 Neut % (Auto) 74.0 % (42.0-75.0) 06/27/18 04:08 Lymph % (Auto) 15.8 % (21.0-51.0) L 06/27/18 04:08 [place] % (Auto) 7.6 % (0.0-13.0) 06/27/18 04:08 Eos % (Auto) 2.1 % (0.9-2.9) 06/27/18 04:08 Baso % (Auto) 0.5 % (0.2-1.0) 06/27/18 04:08 Neut # (Auto) 8.3 x10^3/uL (2.2-4.8) H 06/27/18 04:08 Lymph # (Auto) 1.8 X10^3/uL (1.3-2.9) 06/27/18 04:08 [place] # (Auto) 0.9 x10^3/uL (0.3-0.8) H 06/27/18 04:08 Eos # (Auto) 0.2 x10^3/uL (0.0-0.2) 06/27/18 04:08 Baso # (Auto) 0.1 X10^3/uL (0.0-0.1) 06/27/18 04:08 Absolute Nucleated RBC 0.0 /100WBC 06/27/18 04:08 Total Counted 100 06/25/18 04:10 Neutrophils % (Manual) 87 % (39-76) H 06/25/18 04:10 Band Neutrophils % 4 % (0-10) 06/25/18 04:10 Lymphocytes % (Manual) 4 % (13-43) L 06/25/18 04:10 Monocytes % (Manual) 5 % (4-9) 06/25/18 04:10 Plt Morphology Comment Normal (NORMAL) 06/25/18 04:10 RBC Morphology Normal (NORMAL) 06/25/18 04:10 INR Target Range - 06/24/18 04:15 INR 1.08 (0.8-1.3) 06/24/18 04:15 APTT 30.9 SECONDS (22.9-36.5) 06/23/18 16:11 PTT Comment - 06/23/18 16:11 Sodium 141 mmol/L (136-145) 06/27/18 04:08 Corrected Sodium 142 mmol/L (136-145) 06/27/18 04:08 Potassium 3.6 mmol/L (3.5-5.1) 06/27/18 04:08 Chloride 107 mmol/L (98-107) 06/27/18 04:08 Carbon Dioxide 26.8 mmol/L (21-32) 06/27/18 04:08 BUN 6 mg/dL (7-18) L 06/27/18 04:08 Creatinine 0.85 mg/dL (0.70-1.30) 06/27/18 04:08 Est GFR (MDRD) Af Amer > 60 (>60) 06/27/18 04:08 Est GFR (MDRD) Non-Af > 60 (>60) 06/27/18 04:08 Glucose 156 mg/dL (65-99) H 06/27/18 04:08 POC Glucose (mg/dL) 170 mg/dL (65-99) H 06/24/18 20:12 Calcium 8.6 mg/dL (8.5-10.1) 06/27/18 04:08 Corrected Calcium 9.6 mg/dL (8.5-10.1) 06/27/18 04:08 Total Bilirubin 0.40 mg/dL (0.2-1.0) 06/27/18 04:08 AST 24 Units/L (15-37) 06/27/18 04:08 ALT 46 Units/L (12-78) 06/27/18 04:08 Alkaline Phosphatase 66 Units/L (46-116) 06/27/18 04:08 Total Protein 6.7 g/dL (6.4-8.2) 06/27/18 04:08 Albumin 2.8 g/dL (3.4-5.0) L 06/27/18 04:08 Globulin 3.9 g/dL (2.5-4.5) 06/27/18 04:08 Albumin/Globulin Ratio 0.7 Ratio (1.1-2.1) L 06/27/18 04:08 Specimen Type Random urine 06/23/18 16:37 Urine Color Yellow (YELLOW) 06/23/18 16:37 Urine Appearance Clear (CLEAR) 06/23/18 16:37 Urine pH 7.0 (5.0 - 8.0) 06/23/18 16:37 Ur Specific [place] 1.010 (1.000-1.030) 06/23/18 16:37 Urine Protein Negative (NEGATIVE) 06/23/18 16:37 Urine Glucose (UA) Negative (NEGATIVE) 06/23/18 16:37 Urine Ketones Negative (NEGATIVE) 06/23/18 16:37 Urine Occult Blood 1+ (NEGATIVE) 06/23/18 16:37 Urine Nitrite Negative (NEGATIVE) 06/23/18 16:37 Urine Bilirubin Negative (NEGATIVE) 06/23/18 16:37 Urine Urobilinogen Normal (NORMAL) 06/23/18 16:37 Ur Leukocyte Esterase 2+ (NEGATIVE) 06/23/18 16:37 Urine RBC 3-5 /HPF (NONE SEEN) 06/23/18 16:37 Urine WBC 10-20 /HPF (NONE SEEN) 06/23/18 16:37 Ur Squamous Epith Cells Rare /HPF (NEGATIVE) 06/23/18 16:37 Urine Bacteria Trace /HPF (NEGATIVE) 06/23/18 16:37 Ur Culture Indicated? No/not indicated 06/23/18 16:37 - Assessment and Plan 1: PYLENEPHRITIS: CONTINUE IV ANTIBIOTICS 2: SYNCOPE/HEADACHE: MONITOR NEURO.
== END 2018-06-27 12:33 | disposition home or self-care (01) | DRG 690 ==
LOC: MED/SURG → OBSVTOIN 15:32
PROVIDERS: ADMIT Internal Medicine; ATTEND Internal Medicine
DX: R30.0 Dysuria; I10 Essential (primary) hypertension; R55 Syncope and collapse; R00.0 Tachycardia, unspecified; N10 Acute pyelonephritis; R50.9 Fever, unspecified; R31.0 Gross hematuria; R51 Headache
CPT/HCPCS: 36415; 70450; 74177; 80053; 81001; 85025; 85610; 85730; 87040; 87086; 99238; A4216; A4222; J0696; J0713; J1885; J1956; J3475; J7030; J7050